=== PATIENT | female | born 1965 ===

== ENCOUNTER 2020-07-27 18:06 | Emergency (ER) | payer BC ==
[2020-07-27] MEDS ORDERED: ACETAMINOPHEN W/CODEINE 300-30 MG TAB PO ONE (19:33)
[2020-07-27] MEDS ORDERED: KETOROLAC 60 MG/2 ML INJ IM ONE (19:33)
--- NOTE | 2020-07-27 19:34 | Emergency Department Report ---
ED Back Pain/Injury HPI - General Chief Complaint: Back Pain/Injury Stated Complaint: LOW BACK PAIN Time Seen by Provider: 07/27/20 19:23 Source: patient Limitations: No Limitations - History of Present Illness Initial Comments: 55-year-old female with no significant past medical history presents to the ER today complaint of lower back pain. Patient states that around 230 this afternoon she leaned forward to remove her daughter's coat after which she started with sudden onset of low back pain which caused her to fall. She states that she had a hard time getting up off the floor due to the pain. She describes as a sharp pain in her lower back which radiates down into her right leg. She also reports intermittent tingling down the right leg. He states the pain is worse with walking, and any movements. She has not tried anything for the pain. She denies any bowel or bladder incontinence, saddle anesthesia, lower extremity weakness, abdominal pain, UTI symptoms, chest pain or shortness of breath. She denies similar symptoms in the past. MD Complaint: back injury -: Sudden Similar Symptoms Previously: No Place: home - Related Data Previous Rx's Medication Instructions Recorded Last Taken Type Acetaminophen/Codeine [Tylenol 1 tab PO Q6H PRN #10 tab 07/27/20 Unknown Rx /Codeine # 3 tab] Ketorolac [Toradol] 10 mg PO Q6H PRN #20 tablet 07/27/20 Unknown Rx methOCARBAMOL [Robaxin TAB] 750 mg PO Q8H PRN #30 tablet 07/27/20 Unknown Rx Allergies Allergy/AdvReac Type Severity Reaction Status Date / Time No Known Allergies Allergy Unverified 07/27/20 18:34 ED Review of Systems ROS: Stated complaint: LOW BACK PAIN Other details as noted in HPI Comment: All other systems reviewed and negative Respiratory: denies: cough, shortness of breath, wheezing Cardiovascular: denies: chest pain, palpitations Gastrointestinal: denies: abdominal pain, nausea, vomiting, diarrhea, constipation, hematemesis, hematochezia Genitourinary: denies: urgency, dysuria, discharge Musculoskeletal: back pain Neurological: paresthesias, abnormal gait. denies: headache, weakness, numbness, confusion, vertigo Psychiatric: denies: anxiety, depression ED Past Medical Hx - Past Medical History Previous Medical History?: Yes Additional medical history: sciatica - Surgical History Past Surgical History?: Yes Hx Appendectomy: Yes - Medications Home Medications: Home Medications Medication Instructions Recorded Confirmed Last Taken Type Acetaminophen/Codeine [Tylenol 1 tab PO Q6H PRN #10 tab 07/27/20 Unknown Rx /Codeine # 3 tab] Ketorolac [Toradol] 10 mg PO Q6H PRN #20 tablet 07/27/20 Unknown Rx methOCARBAMOL [Robaxin TAB] 750 mg PO Q8H PRN #30 tablet 07/27/20 Unknown Rx ED Physical Exam - General Limitations: No Limitations General appearance: alert, other (Patient appears uncomfortable and in pain) - Head Head exam: Present: atraumatic, normocephalic, normal inspection - ENT ENT exam: Present: normal exam, mucous membranes moist - Respiratory Respiratory exam: Present: normal lung sounds bilaterally. Absent: respiratory distress - Cardiovascular Cardiovascular Exam: Present: regular rate, normal rhythm - GI/Abdominal GI/Abdominal exam: Present: soft. Absent: distended, tenderness - Extremities Exam Extremities exam: Present: normal inspection, full ROM - Back Exam Back exam: Present: normal inspection, paraspinal tenderness (Moderate te nderness to palpation right lower paraspinal muscle), vertebral tenderness (Mild, lower lumbar spine), other (Range of motion moderately reduced due to pain) - Neurological Exam Neurological exam: Present: alert, oriented X3, other (Strength 5 out of 5 bilateral lower extremity; sensation bilateral lower extremity intact; no saddle anesthesia; patient able to stand, but does not want to walk due to the pain in her back.) - Psychiatric Psychiatric exam: Present: normal affect, normal mood - Skin Skin exam: Present: intact ED Course Vital Signs 07/27/20 07/27/20 18:31 20:43 Temperature 98.9 F Pulse Rate 72 82 Respiratory 18 16 Rate Blood Pressure 126/71 Blood Pressure 116/78 [Left] O2 Sat by Pulse 95 100 Oximetry ED Medical Decision Making - Medical Decision Making 55-year-old female with no significant past medical history presents to the ER today complaint of lower back pain. Patient states that around 230 this afternoon she leaned forward to remove her daughter's coat after which she started with sudden onset of low back pain which caused her to fall. She states that she had a hard time getting up off the floor due to the pain. She describes as a sharp pain in her lower back which radiates down into her right leg. She also reports intermittent tingling down the right leg. He states the pain is worse with walking, and any movements. She has not tried anything for the pain. She denies any bowel or bladder incontinence, saddle anesthesia, lower extremity weakness, abdominal pain, UTI symptoms, chest pain or shortness of breath. She denies similar symptoms in the past. Patient appeared uncomfortable and in pain but overall not toxic, not ill appearing, well hydrated and neurologically intact. PE does not suggest acute cord compression, cauda equinus syndrome, or dissection/AAA. Informed patient that I suspect she pulled a muscle and also in the process irritated her sciatic nerve. Offered to do an x-ray in the ER but informed her that she would likely will need an MRI outpatient if her symptoms continues for another week. Also offer her something for pain here in the ER. Patient initially agreed, but then after talking to the daughter she decided to not do the x-ray and follow-up with her primary care doctor to get the imaging done. She states that it would likely be cheaper for her to get it done on an outpatient basis. She agreed to get a prescription for pain. Patient was stable at time of discharge. Critical care attestation.: If time is entered above; I have spent that time in minutes in the direct care of this critically ill patient, excluding procedure time. ED Disposition Clinical Impression: Lumbar strain, Sciatica Disposition: DC-01 TO HOME OR SELFCARE Is pt being admited?: No Does the pt Need Aspirin: No Condition: Stable Instructions: Lumbar Sprain, Sciatica, [id number] Additional Instructions: Take the medications as prescribed. Follow-up with your primary care doctor as discussed. Return to the ER if your symptoms changes or worsens. Prescriptions: methOCARBAMOL [Robaxin TAB] 750 mg PO Q8H PRN #30 tablet PRN Reason: Pain , Severe (7-10) Ketorolac [Toradol] 10 mg PO Q6H PRN #20 tablet PRN Reason: Pain Acetaminophen/Codeine [Tylenol /Codeine # 3 tab] 1 tab PO Q6H PRN #10 tab PRN Reason: Pain , Severe (7-10) Referrals: KERI COLE MD [Staff Physician] - 3-5 Days PAUL HUNG MD [Staff Physician] - 3-5 Days Time of Disposition: 19:57
[2020-07-27 20:44] VITALS: BP 116/78
== END 2020-07-27 20:45 | disposition home or self-care (01) ==
LOC: ED 18:06
DX: S39.012A Strain of muscle, fascia and tendon of lower back, initial encounter (principal); M54.40 Lumbago with sciatica, unspecified side; Z90.49 Acquired absence of other specified parts of digestive tract; Z79.899 Other long term (current) drug therapy; W19.XXXA Unspecified fall, initial encounter; Y93.89 Activity, other specified; Y92.89 Other specified places as the place of occurrence of the external cause; Y99.8 Other external cause status
CPT/HCPCS: 96372; 99282; J1885